=== PATIENT | male | born 2000 | race Caucasian/White ===

== ENCOUNTER → 2022-10-05 | Outpatient (CLI) | payer OTHER, SELFPAY ==
--- NOTE | 2022-10-05 11:46 | RAD_ITS ---
INDICATION: pain EXAMINATION/TECHNIQUE: X-RAY - RIGHT XR Hand Min 3 Views 3 VIEWS COMPARISON: No relevant prior comparison study available FINDINGS: SOFT TISSUES: No soft tissue swelling or gas. No radiopaque foreign body. BONES/JOINTS: No acute fracture or subluxation.. Normal alignment. Preservation of the joint space.. No sclerotic or destructive changes observed. RAD/Hand Min 3 Views IMPRESSION: No acute osseous injury. Electronically Signed: Anjana Mann MD at 12:19 EDT ,
--- NOTE | 2022-10-05 11:47 | RAD_ITS ---
INDICATION: pain EXAMINATION/TECHNIQUE: X-RAY - RIGHT XR Wrist Min 3 Views 3 VIEWS COMPARISON: No relevant prior comparison study available FINDINGS: SOFT TISSUES: No soft tissue swelling or gas. No radiopaque foreign body. BONES/JOINTS: No acute fracture or subluxation.. Normal alignment. Preservation of the joint space.. No sclerotic or destructive changes observed. RAD/Wrist min 3 Views IMPRESSION: No acute osseous injury. Electronically Signed: Anjana Mann MD at 12:17 EDT ,
== END | disposition home or self-care (01) ==
PROVIDERS: Referring Provider Physician Assistant; Visit Provider Physician Assistant
DX: M25.531 Pain in right wrist (principal)
CPT/HCPCS: 73110; 73130

== ENCOUNTER 2025-01-25 08:35 | Observation (INO) | payer SELFPAY ==
[2025-01-25] VITALS (14 sets, daily range): BP systolic 125–153; BP diastolic 49–81; PULSE 65–91; RESP 16–18; TEMP 36.6–37.1; O2SAT 96–100; BMI 26.2; BMI 25.4
--- NOTE | 2025-01-25 08:42 | EX.ED.DYSGE1 ---
HPI History of Present Illness Chief Complaint: Abd Pain [facility] Medical History (Updated 01/25/25 @ 14:05 by Abril Vogel) Anxiety Depression Smoker Preventative health care Emotional problems Right wrist sprain Right wrist pain Home Medications ?Medication ?Instructions ?Recorded ?Last Taken ?Type NK 01/25/25 Unknown History Allergy/AdvReac Type Severity Reaction Status Date / Time No Known Allergies Allergy Verified 01/25/25 14:09 Social History (Updated 12/07/23 @ 15:01 by Mirella Meredith MA) adopted: No household members: family number of children: 0 current occupational status: employed pets and animals: Yes (1`) pets and animals: dog(s) sexually active: Yes Smoking Status: Current every day smoker tobacco type: e-cigarettes Electronic Cigarette Use: with nicotine alcohol intake: never substance use type: marijuana frequency: 5-6 times per week seatbelt use: always do you feel safe at home: Yes EXAM Physical Exam Const Vital Signs: 01/25/25 08:35 01/25/25 10:04 01/25/25 12:00 Temperature 97.9 F Temperature Source Oral Pulse Rate 70 91 80 Respiratory Rate 16 16 16 Blood Pressure 149/81 H 147/67 H 153/66 H Blood Pressure Mean 103 93 95 Pulse Ox 100 100 99 Oxygen Delivery Method Room Air Room Air Room Air MDM MDM MDM Narrative Medical decision making narrative: HISTORY OF PRESENT ILLNESS: Chief complaint: Abdominal pain 24-year-old male presents abdominal pain. Notes this began last night approximate 11 PM. He further states pain is located in the right lower quadrant and right testicle. Denies any trauma. Denies history of abdominal surgery. Notes intermittent nausea but no vomiting. Denies fevers. Denies association with food. Denies recent sexual activity. Last sexual intercourse was a month to 6 weeks ago. Protected. No recent trauma. REVIEW OF SYSTEMS: Pertinent positives: Abdominal pain Pertinent negatives: Vomiting, fever PHYSICAL EXAM: Nursing triage notes reviewed, Vital signs reviewed Constitutional: please see mdm HENT: MMM Eyes: Pupils equal round and reactive to light, Extraocular muscles intact Neck: No stridor, no JVD, full neck ROM Lungs: Clear to auscultation, No wheezing or rales. No increased work of breathing, no conversational dyspnea, no accessory muscle use, no nasal flaring. No respiratory distress noted Heart: Regular rate and rhythm, No murmurs, No rubs and No gallops, 2+ distal pulses (radial, femoral, posterior tibial) in all extremities Abdomen: Soft, right lower quadrant TTP, slight rebound but no rigidity or guarding, no obvious peritoneal signs, no palpable pulsatile abdominal masses, no auscultated abdominal bruit : No CVAT. Normal testicular lie. Intact hemostatic reflex. TTP over right testicle. No palpable masses. The testicle is not high riding without exquisitely tender to pain. There is no perineal crepitus or irritation to suggest Tammie's gangrene Extremities: No edema Neuro: No new focal neurological deficits, cranial nerves II through XII intact, 5/5 strength in all present extremities. Intact sensation to light touch in all present extremities, 2+ reflexes bilateral patella tendons. Skin: No rash or lesions noted MEDICAL DECISION MAKING: Chief Complaint: please see HPI External records reviewed: Factors affecting care: none Social determinants of health: none History obtained from others: none Consults: Radiology (Dr. Gandhi) - noted acute appendicitis but no appendicolith or abscess. General surgery (Dr. Nj) - MDM Narrative: Patient was initially hemodynamically stable, afebrile and nontoxic-appearing. Exam with right lower quadrant TTP, right testicular TTP. I considered the following differential diagnosis: AAA, small bowel obstruction, abdominal perforation, appendicitis, pancreatitis, hepatobiliary pathology (acute cholecystitis), mesenteric ischemia, pathology (ie nephrolithiasis, pyelonephritis), testicular torsion, orchitis, epididymitis. I obtained broad lab and imaging work to further determine if the patient was suffering from a life-threatening etiology. Initially treat the patient with 1 L IV fluid, 15 mg IV Toradol and 4 mg IV Zofran for symptomatic relief. ALL IMAGES (IF OBTAINED) HAVE BEEN PERSONALLY REVIEWED AND INTERPRETED BY MYSELF. CBC with leukocytosis suggestive of systemic inflammation, no anemia or thrombocytopenia CMP without evidence of acute kidney injury, significant electrolyte abnormality, anion gap to suggest end organ hypo-perfusion, no evidence of metabolic acidosis with a normal bicarbonate, no evidence of hepatobiliary obstructive pathology. Lipase is wnl indicating no pancreatic inflammation. Urinalysis shows no evidence of urinary inflammation suggestive of UTI CT scan abdomen pelvis showed evidence of acute appendicitis Testicular ultrasound showed evidence of hydrocele but no sign of orchitis, epididymitis, testicular torsion or mass The patient's clinical presentation, labs images are most consistent with acute appendicitis as a likely etiology of his symptoms. I consulted general surgery immediately upon receipt of CT read. Dr. Nj evaluated the patient ED and recommended admission to general surgery observation on the [facility] floor to await urgent OR intervention The patient and/or family, caregivers express understanding. The patient and/or family, caregivers agrees with the plan. Shared decision making: I will have a discussion with the patient and or visitors regarding risk/benefits of further testing or admission. They will be made aware of of the risk/benefits inherent in this decision they will be given the opportunity to voice understanding. Total critical care time today provided was at least 35 minutes. This excludes separately billable procedures. Critical care time (if documented) is secondary to the patient having high probability of clinically significant/life threatening deterioration in the patient's condition which required my urgent intervention. Impression: 1. Acute abdominal pain 2. Right testicular pain 3. Acute appendicitis Dispo: Admit to [facility] floor This note was generated with [employer] dictation software. It may contain incorrect words, spelling, and punctuation that were not noted in review of the chart prior to signing. Lab Data Labs: Laboratory Results - last 24 hr 01/25/25 01/25/25 08:55 09:26 WBC 15.7 H RBC 4.79 Hgb 15.1 Hct 44.5 MCV 92.9 MCH 31.5 MCHC 33.9 RDW Std Deviation 43.2 RDW Coeff of Laine 12.6 Plt Count 317 MPV 9.2 Immature Gran % (Auto) 0.300 Neut % (Auto) 84.2 H Lymph % (Auto) 11.6 L [place] % (Auto) 3.5 Eos % (Auto) 0.1 Baso % (Auto) 0.3 Absolute Neuts (auto) 13.3 H Absolute Lymphs (auto) 1.82 Nucleated RBC % 0 Sodium 141 Potassium 3.9 Chloride 102 Carbon Dioxide 26.4 Anion Gap 12 BUN 13 Creatinine 0.95 Estim Creat Clear Calc 121.97 Est GFR (MDRD) Non-Af 117 BUN/Creatinine Ratio 13.4 Glucose 130 H Calcium 9.9 Total Bilirubin 0.34 AST 36 ALT 69 H Alkaline Phosphatase 76 Total Protein 7.3 Albumin 4.5 Globulin 2.8 Albumin/Globulin Ratio 1.6 Lipase 37 Urine Color Yellow Urine Clarity Cloudy Urine pH 8.0 Ur Specific [place] 1.015 Urine Protein Negative Urine Glucose (UA) Normal Urine Ketones Negative Urine Occult Blood Negative Urine Nitrite Negative Urine Bilirubin Negative Urine Urobilinogen Normal Ur Leukocyte Esterase Negative Urine RBC 0 SEEN Urine WBC 0 SEEN Ur Squamous Epith Cells 0 SEEN Amorphous Sediment 2+ PHOS Urine Bacteria 0 SEEN Urine Mucus 0 SEEN Radiography Diagnostic Testing: Clinical Impression(s) from Imaging Studies Abdomen/Pelvis CT 01/25/25 08:50 IMPRESSION: The appendix is distended measures 8 mm in diameter with wall enhancement. No appendicolith. No abscess. These findings are consistent with acute appendicitis. Reading Location: [facility] Testicular Ultrasound 01/25/25 08:50 IMPRESSION: Moderate-sized right hydrocele. Otherwise, unremarkable ultrasound of the testicles. Reading Location: [facility] Discharge Plan Disposition Disposition: Acute Care Hospital [facility] Discharge Date/Time: 01/25/25 13:41
--- NOTE | 2025-01-25 08:50 | CT_ITS ---
PROCEDURE: ABDOMEN/PELVIS W IV CONT ONLY 01/25/2025 REASON FOR EXAM: RIGHT LOWER QUADRANT ABDOMINAL PAIN TECHNIQUE: Procedure Code: [id number] Modality: CT Procedure: ABDOMEN/PELVIS W IV CONT ONLY Coronal and Sagittal reconstruction series were provided. CONTRAST: Isovue 370 VOLUME: 75 mL One or more dose reduction techniques were used (e.g., Automated exposure control, adjustment of the mA and/or kV according to patient size, use of iterative reconstruction technique. RADIATION DOSE SUMMARY: CTDlvol: 8.38 mGy DLP: 760.91 mGycm COMPARISON: None. FINDINGS: Lung bases: Clear. Liver: Unremarkable. Gallbladder: Unremarkable. No biliary dilation. Spleen: Unremarkable. Pancreas: Unremarkable. Adrenals: Unremarkable. Kidneys: No hydronephrosis. No nephrolithiasis. Bladder: Unremarkable. Reproductive Organs: Unremarkable. Bowel: No bowel wall thickening. No bowel obstruction. Appendix: The appendix is distended measures 8 mm in diameter with wall enhancement. No appendicolith. Lymph nodes: No lymphadenopathy. Vasculature: No aneurysm. Peritoneum / Retroperitoneum: Trace free fluid in the pelvis. Bones: No acute bony elements. CT/Abdomen/Pelvis W IV Cont ONLY IMPRESSION: The appendix is distended measures 8 mm in diameter with wall enhancement. No a ppendicolith. No abscess. These findings are consistent with acute appendicitis. Reading Location: [facility]
--- NOTE | 2025-01-25 08:50 | US_ITS ---
PROCEDURE: TESTICULAR WITH ARTERIAL FLOW 01/25/2025 REASON FOR EXAM: RIGHT TESTICULAR PAIN TECHNIQUE: Procedure Code: USTES Modality: US Procedure: TESTICULAR WITH ARTERIAL FLOW COMPARISON: None. FINDINGS: RIGHT testicle: 4.6 x 2.9 x 2.2 cm. Unremarkable in echotexture and vascularity. Right epididymis: 0.9 x 0.9 x 1 cm. Unremarkable in size and echogenicity. LEFT testicle: 4.7 x 2.6 x 2.1 cm. Unremarkable in echotexture and vascularity. Left epididymis: 1.1 x 1.3 x 0.8 cm. A 0.4 cm simple cyst in the left abdomen and head. Otherwise, unremarkable echogenicity and vascularity. Other findings: Moderate-sized right hydrocele. US/Testicular with Arterial Flow IMPRESSION: Moderate-sized right hydrocele. Otherwise, unremarkable ultrasound of the testicles. Reading Location: [id number]
[2025-01-25 09:05] LABS: Hematocrit 44.5 % (40-54); Hemoglobin 15.1 g/dL (13.0-16.5); Immature Granulocytes Count 0.050 X10^3/uL (0.0-0.0); Mean Corp Hgb Conc 33.9 g/dL (32-36); Mean Corpuscular Volume 92.9 fL (80-94); Mean Platelet Vol. 9.2 fl (6.2-12.0); NRBC Flagged by Analyzer 0 % (0-5); Platelet Count 317 K/mm3 (150-450); RBC Distribution Width CV 12.6 % (11.6-14.6); RBC Distribution Width SD 43.2 fl (35.1-43.9); Red Blood Count 4.79 M/mm3 (4.6-6.2); White Blood Count 15.7 K/mm3 (4.4-11.0)
[2025-01-25] MEDS: 0.9% Normal Saline (1000mL) 1,000 ML 999 ML IV (09:07)
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
[2025-01-25 09:31] LABS: Mucous, Urine 0 SEEN /hpf (<or=2+); Red Blood Cells-Urine 0 SEEN /hpf (0-5); Squamous Epithelial Cells - UA 0 SEEN /hpf (0-5)
[2025-01-25 09:32] LABS: Color, Urine Yellow (Yellow); Glucose, Dipstick Normal (Normal); Ketone-Dipstick Negative (Negative); Leukocyte Esterase-Dipstick Negative /ul (Negative); Nitrite-Dipstick Negative (Negative); Occult Blood-Urine Negative /ul (Negative); Protein-Dipstick Negative (Negative); Specific Gravity, Urine 1.015 (1.002-1.030); Urine Bilirubin Dipstick Negative (Negative)
[2025-01-25 09:42] LABS: AST(SGOT) 36 U/L (<=37); Alanine Aminotransfer ALT/SGPT 69 U/L (<=46); Albumin, Serum 4.5 g/dL (3.5-5.0); Alkaline Phosphatase 76 U/L (40-129); Anion Gap 12 (5-15); BUN 13 mg/dL (4-19); BUN/Creat Ratio 13.4 RATIO (10-20); Calcium,Total 9.9 mg/dL (7.6-11.0); Carbon Dioxide 26.4 mmol/L (21.0-32.0); Chloride 102 mmol/L (98-108); Estimated Creatinine Clearance 121.97 ml/min (50-250); Globulin 2.8 g/dL (2.2-4.2); Glucose 130 mg/dL (70-99); Lipase 37 U/L (13-75); Potassium 3.9 mmol/L (3.3-5.1)
[2025-01-25] MEDS: Piperacil/Tazobactam 4.5 GM in 0.9% Normal Saline (100mL MB+) 100 ML IV (11:29)
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
[2025-01-25] MEDS: HYDROmorphone 0.5 MG/0.5 ML SYRINGE IV ×2 (14:41→22:45)
[2025-01-25] MEDS: 0.9% Normal Saline (1000mL) 1,000 ML 125 ML IV ×2 (14:42→22:44)
--- NOTE | 2025-01-25 17:20 | APP_PTH ---
PATIENT: ANTONETTE ALVARADO SANDIE LOC: [facility] U#:[id number] AGE/SX: 24/M ROOM: [facility]319 RE01/25/[address]: Dr. Rogelio Nj MD : 2000 BED: 1 DIS: 01/26/2025 SPEC #: [id number] RECD: 01/27/25 07:39 STATUS: NAHID RELópez #: [id number] CAT: 01/25/25 17:[address]: Rogelio Nj DEPT: SURGICAL PATHOLOGY RECD BY: Rhys Ma ENTERED: 01/27/25 10:13 SP TYPE: APPENDIX OTHR DR: No Primary Care Phys Tissues: A - Appendix, NOS Procedures: Immunohistochemical Stains Surgery Specimen Level III IHC Stain ADDITIONAL HEADER OPERATION: Laparoscopic appendectomy PRE-OP DIAGNOSIS: Acute appendicitis TISSUE SUBMITTED: A- Appendix MICROSCOPIC DIAGNOSIS A. 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 - pN not assigned (no lymph nodes submitted or found). - Lymphovascular invasion identified, focal. - Surgical margin free. - Acute appendicitis. Note: The tumor cells are positive for pankeratin, Chromogranin, and Synaptophysin, supporting the diagnosis. The Ki67 proliferative index is less than 3%. Mitoses are not observed. The cross-sectional dimension of the tumor is 0.7 cm; the additional dimension cannot be determined as this is an incidental finding. CASE SUMMARY: (APPENDIX NEUROENDOCRINE TUMOR) Standard(s): AJCC-UICC 9 SPECIMEN Procedure: Appendectomy TUMOR Tumor Site: Appendix, not otherwise specified (not tip) Histologic Type and Grade# _X_G1, well-differentiated neuroendocrine tumor Histologic Grade Determination Mitotic Rate _X_ Not applicable (Ki-67 labeling index is reported) Ki-67 Labeling Index _X_ Less than 3% Tumor Size _X_ Greatest dimension in Centimeters (cm): 0.7 cm Tumor Extent _X_ Invades lamina propria _X_ Invades submucosa _X_ Invades muscularis propria _X_ Invades subserosa _X_ Perforates visceral peritoneum (serosa), focally Lymphatic and / or Vascular Invasion ___ Not identified _X_ Present +Perineural Invasion _X_ Not identified ___ Present ___ MARGINS Margin Status _X_ All margins negative for tumor +Closest Margin(s) to Tumor _X_ Cannot be determined: incidental finding +Distance from Tumor to Closest Margin Specify in Centimeters (cm) _X_ Cannot be determined: incidental finding REGIONAL LYMPH NODES Regional Lymph Node Status _X_ Not applicable (no regional lymph nodes submitted or found) DISTANT METASTASIS Distant Site(s) Involved, if applicable (select all that apply) _X_ Not applicable (unknown) pTNM CLASSIFICATION (AJCC Version 9) pT Category# ___ pT not assigned (cannot be determined based on available pathological information ___ pT0: No evidence of primary tumor ___ pT1: Tumor less than or equal to 2 cm in greatest dimension ___ pT2: Tumor greater than 2 cm but less than or equal to 4 cm in greatest dimension ___ pT3: Tumor greater than 4 cm in greatest dimension, or with subserosal invasion, or involvement of the mesoappendix _X_ pT4: Tumor perforates the peritoneum, or directly invades other adjacent organs or structures (excluding direct mural extension to adjacent subserosa of adjacent bowel), e.g., abdominal wall and skeletal muscle) pN Category _X_ pN not assigned (no nodes submitted or found) ___ pN not assigned (cannot be determined based on available pathological information) ___ pN0: No tumor involvement of regional lymph node(s) ___ pN1:Tumor involvement of regional lymph node(s) ADDITIONAL FINDINGS +Additional Findings (select all that apply) ___ None identified ___ Tumor necrosis _X_ Acute appendicitis ___ Other (specify): COMMENTS Grossly the yellow (tumor) area was observed in the mid-portion of the appendix. COMMENT Dr Johnnie Nj was notified of the preliminary diagnosis of low grade well-differentiated neuroendocrine tumor and acute appendicitis by email, 01/30/25. MICROSCOPIC DESCRIPTION Slides are reviewed. All matched controls reacted appropriately. These tests were developed and their performance characteristics determined by [facility]. They may not have been cleared or approved by the U.S. Food and Drug Administration. The FDA has determined that such clearance or approval is not necessary. The above immunohistochemical markers and/or special?stains have been reviewed by the Pathologist. GROSS DESCRIPTION A. Received in formalin labeled with the patient's name and date of . Designated as appendix is a puckett-pink appendix, adhesed on itself in a U-shapedconfiguration, measuring approximately 6.1 x 0.7 cm. The margin is inked black and shaved. Sectioning reveals pink-red, somewhat granular mucosa with hemorrhagic luminal contents; centrally, the mucosa is puckett-yellow and firm. Laboratory Machinist sections are submitted in 1 cassette. AK 01/27/2025 A. The remaining sections with yellow area are submitted in cassette A2 at [facility], following inking of the serosal surface (black) and histopathologic review. AK 01/31/25 CPT:76843,74265,32155k0
--- NOTE | 2025-01-25 19:00 | PRE.ANES_ITS ---
ASA Classification* ASA Classification ASA Classification: 2 and E Assessment & Plan Anesthesia* Anesthesia Assessment Anesthesia Assessment: Discussed sedation and/or anesthesia options, risks, benefits, and alternatives with patient/parents/legal guardian/POA. Questions invited. The patient/parents/legal guardian/POA seems to understand and agrees to proceed with anesthesia plan. Reviewed the physical assessment, medical history, allergy history and patient home medications list prior to surgery/procedure/anesthetic and documented any changes. Performed airway and anesthesia risk assessments. Anesthesia Type Anesthesia Type: General Anesthesia Focused Assessment* Temperature: 98.2 F Pulse Rate: 70 Blood Pressure: 136/78 Respiratory Rate: 17 Pulse Ox: 98 Airway Assessment Mouth opens: >3 cm Mallampati Score: II Labs Anesthesia Preop lab: CBC WBC, (4.4-11.0) 15.7 K/mm3 H Today, 08:55 RBC, (4.6-6.2) 4.79 M/mm3 Today, 08:55 Hgb, (13.0-16.5) 15.1 g/dL Today, 08:55 Hct, (40-54) 44.5 % Today, 08:55 Plt Count, (150-450) 317 K/mm3 Today, 08:55 CHEMISTRY Potassium, (3.3-5.1) 3.9 mmol/L Today, 08:55 Sodium, (133-145) 141 mmol/L Today, 08:55 BUN, (4-19) 13 mg/dL Today, 08:55 Creatinine, (0.70-1.20) 0.95 mg/dL Today, 08:55 Glucose, (70-99) 130 mg/dL H Today, 08:55 COAG Pre-Assessment Diagnosis/Proposed Procedure Planned Operative Procedure(s): lap [place] Anesthesia History 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 When Was Last Pacemaker Check QUESTION #4 FULL TEXT: You/Your Family Experience fever (hyperthermia) with Anesthesia Last Oral Intake Last Oral intake: Last Oral Intake NPO since 00:00 01/25/25 18:35 Meds taken in AM with sips of No 01/25/25 18:35 water? 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 Has anyone observed you stop No 01/25/25 13:48 breathing during sleep? STOP Results Negative 01/25/25 13:48 QUESTION #5 FULL TEXT : Do you snore loudly (louder than talking or can be heard through closed doors)? 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 Specify any problems Hx of Preganancy in last 3 N/A 01/25/25 13:48 Months Nurse Filling Out Transfusion TCLEVIDEN 01/25/25 13:48 & Questions: Date: 01/25/25 01/25/25 13:48 Time: 13:58 01/25/25 13:48 Patient unable to answer at this time (ie. 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: /Reproductive Hx- yard loader operator Hx Now Gestational Age (in weeks): EDC: Hx Hx Para Hx Section SAB Does the father of the baby or his family experience fever w Father of the baby Malignant Hypertension history comment Active Medications Active Medications: Current Medications Generic Name Dose Route Start Last Admin Trade Name Freq PRN Reason Stop Dose Admin Acetaminophen 650 mg 01/25/25 12:41 Acetaminophen 325 Mg Tablet PO Q6H PRN PRN Pain 1-10 or Fever Hydromorphone HCl 0.5 mg 01/25/25 12:41 01/25/25 14:41 Hydromorphone 0.5 Mg/0.5 Ml Syringe IV 0.5 mg Q4H PRN PRN Administration Pain Score 6-10 Sodium Chloride 1,000 mls @ 125 mls/hr 01/25/25 14:00 01/25/25 14:42 IV 125 mls/hr .Q8H LANCE Administration Piperacillin Sod/Tazobactam 50 mls @ 12.5 mls/hr 01/25/25 21:00 Sod 3.375 gm/ Sodium Chloride IV Q8 LANCE Sodium Chloride 250 mls @ 15 mls/hr 01/25/25 13:49 IV .[id number] PRN Saline Flush Sodium Chloride 250 mls @ 15 mls/hr 01/25/25 13:49 IV .[id number] PRN Additional IVPB Infusion Ondansetron HCl 4 mg 01/25/25 12:41 01/25/25 14:40 Ondansetron 4 Mg/2 Ml Vial IV 4 mg Q6H PRN PRN Administration NAUSEA/VOMITING Polyethylene Glycol 17 gm 01/26/25 10:00 Polyethylene Glycol 3350 17 Gm Packet PO DAILY LANCE Sodium Chloride 10 - 40 ml 01/25/25 13:49 0.9% Saline Lock 10 Ml Syringe IV UD PRN SALINE FLUSH PFSH Medical History Anxiety Depression Smoker Preventative health care Emotional problems Right wrist sprain Right wrist pain Home Medications ?Medication ?Instructions ?Recorded ?Last Taken ?Type NK 01/25/25 Unknown History Allergy/AdvReac Type Severity Reaction Status Date / Time No Known Allergies Allergy Verified 01/25/25 14:09 Social History adopted: No household members: family number of children: 0 current occupational status: employed pets and animals: Yes (1`) pets and animals: dog(s) sexually active: Yes Smoking Status: Current every day smoker tobacco type: e-cigarettes Electronic Cigarette Use: with nicotine alcohol intake: never substance use type: marijuana frequency: 5-6 times per week seatbelt use: always do you feel safe at home: Yes Review of Systems (Anesthesia) ROS Narrative System reviewed and no additional complaints, except as documented.
[2025-01-25] MEDS: Midazolam 2 MG/2 ML Syringe IV (19:48)
[2025-01-25] MEDS: fentaNYL 100 MCG/2 ML Ampul IV (19:48)
[2025-01-25] MEDS: Cefazolin 1 GM/5 ML Vial IV (20:10)
[2025-01-25] MEDS: Piperacil/Tazobactam 3.375 GM/50 ML ML IV (20:24)
[2025-01-25] MEDS: Bupiv/Epi 0.25% 30 ML Vial (21:00)
[2025-01-25] MEDS: Lactated Ringers 2,000 ML 2000 ML IV (21:06)
--- NOTE | 2025-01-25 21:15 | OP.PCM_ITS ---
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 Type of Anesthesia: General/Supplemental (20 mL quarter percent bupivacaine with epinephrine) RN Documented Start/Stop Times: Operation Date: 01/25/25 17:20 Case Time Into Pre-Op 01/25/25 19:11 Out of Pre-Op 01/25/25 19:45 Anesthesia Start 01/25/25 19:47 Into Room 01/25/25 19:47 Procedure Start 01/25/25 20:09 Procedure End 01/25/25 21:12 Anesthesia End 01/25/25 21:22 Out of Room 01/25/25 21:22 Into Recovery 01/25/25 21:25 Out of Recovery 01/25/25 22:01 Procedure Start Time: 20:09 Procedure Stop Time: 21:12 Select all DRAINS/GRAFTS/IMPLANTS that apply: None Estimated Blood Loss: 5 Specimen collected: Yes Description of specimen(s) removed: Appendix Description of surgery: After appropriate identification in the preoperative holding area, the patient was brought to the operating room and placed supine on the operating room table. Patient was then induced with general endotracheal anesthetic. The abdomen was prepped and draped in usual sterile fashion. Antibiotics were redosed with 1 g Ancef for skin prophylaxis and then ultimately redosed on schedule for patient's continuous Zosyn order. Formal timeout was conducted to confirm both the patient and the procedure. A supraumbilical incision was made and carried down to the level of the fascia which was sharply opened. After opening the peritoneum in like fashion a finger sweep was made to confirm position, and a balloon trocar was placed and pneumoperitoneum was established to 15 mmHg. Patient was positioned in Trendelenburg with the left side down. 2 additional 5 mm trocars were placed in the left lower quadrant and suprapubic positions. The peritoneum was inspected and there are no signs of inadvertent injury from this [place] entry. The appendix was visualized with mild inflammation as it was bent in a U-shape and adherent down to the retroperitoneum overlying the right common iliac vessel. Using a combination of blunt dissection and ultrasonic energy from the laparoscopic harmonic scalpel I freed these adhesions along the perimeter of the appendix so that it could then be elevated anteriorly. The mesoappendix was divided with serial application of a laparoscopic harmonic. Then the base of the appendix was sealed and amputated with the use of an Endo ELIZABETH stapler. The appendix was placed in an Endo Catch bag. The staple line was inspected for hemostasis and there appeared to be a slight serosal defect adjacent to the insertion of the terminal ileum. To try to minimize the risk of this becoming something clinically significant I chose to oversew the area with a single 3-0 silk suture using laparoscopic needle drivers and the epiploic fat adjacent to the terminal ileum to patch the area. This brought about a nice seal of the serosa. After hemostasis was confirmed the appendix was removed from the umbilical port site and the Endo Catch bag. Pneumoperitoneum was then evacuated and the supraumbilical port site fascia was closed with #1 Vicryl in a [id number] fashion. The port sites were infiltrated with 20 mL local anesthetic. The skin of each port site was closed with 4-0 Monocryl in a subcuticular fashion. Steri-Strips and OpSite dressings were applied. Patient tolerated procedure well without any apparent complications. They were awoken from general anesthetic without issue and transferred to post anesthesia care unit for ongoing recovery. Surgical Findings: ? Acutely inflamed, dilated appendix wrapping over the right common iliac just superior to the pelvic brim with no signs of perforation or free fluid Complications Complications: No Admit VTE Documentation VTE Mechan Device Prophylaxis: SCD's
--- NOTE | 2025-01-25 21:28 | PCM.POST.ANE ---
Anesthesia: Postop Eval I Current Vital Signs Temperature: 98.1 F Pulse Rate: 82 Blood Pressure: 149/49 Respiratory Rate: 18 Pulse Ox: 100 Assessment Airway patent: Yes Spontaneous unlabored respirations: Yes nausea: No Vomiting: No Anesthesia Complication: No Fluid Hydration Crystalloid volume administer (ml): 1,200 Total IV fluid infused: 1,200 Progress Note Anesthesia document: Postop Eval 1 completed: Yes
--- NOTE | 2025-01-25 21:29 | PCM.POSTANE2 ---
Anesthesia Postop Eval I Sum Postop Eval Completion status Anesthesia document: Postop Eval 1 completed: Yes Anesthesia Postop Eval I Summary Anesthesia Postop Eval I Summary: Anesthesia Postop Eval I: Assessment Summary Airway patent Yes 01/25/25 21:28 Spontaneous unlabored Yes 01/25/25 21:28 respirations Mental status nausea No 01/25/25 21:28 Vomiting No 01/25/25 21:28 Anesthesia Postop Eval I: Fluid Summary Crystalloid volume administer 1,200 01/25/25 21:28 (ml) Colloids volume administered ( ml) Blood Product volume administered (ml) Total IV fluid infused 1,200 01/25/25 21:28 Anesthesia Postop Eval I: Summary Notes Anesthesia Complication No 01/25/25 21:28 Anesthesia Complication Comment: Post-operative progress note Anesthesia: Postop Eval II Evaluation Mental status: Awake Pain Level: 0 nausea: No Vomiting: No
[2025-01-26 00:15] VITALS: BP 113/57; PULSE 63; RESP 16; TEMP 36.6; O2SAT 96
[2025-01-26 02:15] VITALS: BP 117/57; PULSE 49; RESP 16; TEMP 37.1; O2SAT 98
[2025-01-26] MEDS: Piperacil/Tazobactam 3.375 GM in 0.9% Normal Saline (50mL MB+) 50 ML IV (05:04)
[2025-01-26 06:15] VITALS: BP 115/60; PULSE 53; RESP 16; TEMP 36.7; O2SAT 96
[2025-01-26] MEDS: 0.9% Normal Saline (1000mL) 1,000 ML 125 ML IV (06:22)
[2025-01-26 08:23] VITALS: BP 128/40; PULSE 53; RESP 16; TEMP 36.3; O2SAT 98
[2025-01-26] MEDS: Ketorolac 30 MG/ML Syringe IV (08:37)
[2025-01-26] MEDS: Polyethylene Glycol 3350 17 GM PACKET PO (08:38)
[2025-01-26] MEDS: HYDROmorphone 0.5 MG/0.5 ML SYRINGE IV (08:38)
[2025-01-26 08:56] LABS: Anion Gap 11 (5-15); BUN 9 mg/dL (4-19); BUN/Creat Ratio 7.7 RATIO (10-20); Calcium,Total 8.6 mg/dL (7.6-11.0); Carbon Dioxide 25.4 mmol/L (21.0-32.0); Chloride 106 mmol/L (98-108); Estimated Creatinine Clearance 105.88 ml/min (50-250); Glucose 101 mg/dL (70-99); Potassium 3.8 mmol/L (3.3-5.1)
[2025-01-26 09:13] LABS: Hematocrit 41.5 % (40-54); Hemoglobin 13.6 g/dL (13.0-16.5); Immature Granulocytes Count 0.020 X10^3/uL (0.0-0.0); Mean Corp Hgb Conc 32.8 g/dL (32-36); Mean Corpuscular Volume 95.4 fL (80-94); Mean Platelet Vol. 9.3 fl (6.2-12.0); NRBC Flagged by Analyzer 0 % (0-5); Platelet Count 286 K/mm3 (150-450); RBC Distribution Width CV 12.7 % (11.6-14.6); RBC Distribution Width SD 44.8 fl (35.1-43.9); Red Blood Count 4.35 M/mm3 (4.6-6.2); White Blood Count 10.0 K/mm3 (4.4-11.0)
--- NOTE | 2025-01-26 09:30 | PN.SURG_ITS ---
Subjective Subjective Patient seen and examined during AM rounds. He is found resting in bed. However, once he arouses he states that he is quite sore. He confirms that he had some Jell-O last evening without any nausea. He shares he slept most of the evening and only began feeling his soreness this morning. Objective Data Objective Data Vital Signs: Vital Signs Temp Pulse Resp BP Pulse Ox O2 Del Method 97.4 F L 53 L 16 128/40 H 98 Room Air 01/26/25 08:23 01/26/25 08:23 01/26/25 08:23 01/26/25 08:23 01/26/25 08:23 01/26/25 08:23 Oxygen Delivery Method Room Air Weight: 177 lb 3.991 oz Body Mass Index (BMI) 25.4 Intake & Output: Intake and Output for Last 24 Hours 01/24/25 01/25/25 01/26/25 23:59 23:59 23:59 Intake Total 1868.75 / 1868.75 1434.17 / 1434.17 Balance 1868.75 / 1868.75 1434.17 / 1434.17 Lab / Micro Data 01/26/25 08:30 01/26/25 08:30 Labs: Laboratory Results - last 24 hr 01/25/25 08:55: Sodium 141, Potassium 3.9, Chloride 102, Carbon Dioxide 26.4, Anion Gap 12, BUN 13, Creatinine 0.95, Estim Creat Clear Calc 121.97, Est GFR (MDRD) Non-Af 117, BUN/Creatinine Ratio 13.4, Glucose 130 H, Calcium 9.9, Total Bilirubin 0.34, AST 36, ALT 69 H, Alkaline Phosphatase 76, Total Protein 7.3, Albumin 4.5, Globulin 2.8, Albumin/Globulin Ratio 1.6, Lipase 37 01/25/25 09:26: Urine Color Yellow, Urine Clarity Cloudy, Urine pH 8.0, Ur Specific [place] 1.015, Urine Protein Negative, Urine Glucose (UA) Normal, Urine Ketones Negative, Urine Occult Blood Negative, Urine Nitrite Negative, Urine Bilirubin Negative, Urine Urobilinogen Normal, Ur Leukocyte Esterase Negative, Urine RBC 0 SEEN, Urine WBC 0 SEEN, Ur Squamous Epith Cells 0 SEEN, Amorphous Sediment 2+ PHOS, Urine Bacteria 0 SEEN, Urine Mucus 0 SEEN 01/26/25 08:30: WBC 10.0, RBC 4.35 L, Hgb 13.6, Hct 41.5, MCV 95.4 H, MCH 31.3, MCHC 32.8, RDW Std Deviation 44.8 H, RDW Coeff of Laine 12.7, Plt Count 286, MPV 9.3, Immature Gran % (Auto) 0.200, Neut % (Auto) 63.4, Lymph % (Auto) 28.1, [place] % (Auto) 7.2, Eos % (Auto) 0.7, Baso % (Auto) 0.4, Absolute Neuts (auto) 6.3, Absolute Lymphs (auto) 2.80, Nucleated RBC % 0, Sodium 142, Potassium 3.8, Chloride 106, Carbon Dioxide 25.4, Anion Gap 11, BUN 9, Creatinine 1.13, Estim Creat Clear Calc 105.88, Est GFR (MDRD) Non-Af 94, BUN/Creatinine Ratio 7.7 L, G lucose 101 H, Calcium 8.6 Micro: Microbiology 01/25/25 09:26 Urine, Clean Catch Chlamydia/Neisseria (PCR) - Final Radiography Diagnostic Testing: Radiology Impression Abdomen/Pelvis CT 01/25/25 08:50 IMPRESSION: The appendix is distended measures 8 mm in diameter with wall enhancement. No appendicolith. No abscess. These findings are consistent with acute appendicitis. Reading Location: [facility] Testicular Ultrasound 01/25/25 08:50 IMPRESSION: Moderate-sized right hydrocele. Otherwise, unremarkable ultrasound of the testicles. Reading Location: [facility] Physical Exam Const oriented x3 Constitutional Narrative: In mild distress with pain on exam GI GI Narrative: Nondistended, operative incisions remain covered with dressings which are clean dry and intact. Patient reporting diffuse tenderness which he rates with an intensity of 9 out of 10. Assessment & Plan Assessment/Plan (1) Status post laparoscopic appendectomy: PLAN: Patient is postoperative day 1 from laparoscopic appendectomy with intraoperative finding confirming acute uncomplicated appendicitis. This morning he is reporting significant tenderness but his vitals are within normal limits, his laboratories are reassuring, and his exam somewhat equivocal. It is difficult for me to determine if this is simply patient's expression of discomfort after a did not receive significant pain medication overnight because he was sleeping and this representing his first operation or something more. I ordered a dose of Toradol and asked for ice to be applied to the incision. Will follow-up efficacy. Patient also asked to see how he does with a diet. Ultimately we will have to transition to oral pain medication before he is eligible for discharge. Rogelio Nj MD General Surgery Endocrine Surgery Pager: [facility] [address] [place] [address], [address] [place] [address] Office: [phone] Charges/Coding Visit Charges Inpatient E&M: 60113 Subs Hosp L2
--- NOTE | 2025-01-26 09:41 | DCINST_ITS ---
Discharge Instructions DC O2, CPAP, BIPAP needs Home O2 Discharge instructions: No Dressing / Incision Discharge Activity: May Not Drive (No driving while using narcotic pain medication) and May Shower (Postoperative day 1) May shower in (days): 1 Ice area for (Minutes): 20 Lifting Restrictions: No lifting greater than 15 pounds for 2 weeks after surgery Dressing / Incision Call your doctor if your incision/area has: Continuous Slow Oozing, Increased Pain/ Swelling, Increased Redness, Foul Smelling Discharge and Swelling at the incision site Call your doctor if you observe: Fever of 101 or Higher Remove Dressing in: 1 day (Please leave Steri-Strips intact until they fall off spontaneously or are taken off at your follow-up visit) Cleanse incision/area with: Soap & Water Follow Up Care Please Follow Up With: Rogelio Nj MD When: 7-10days postop Test Results: Test results from this visit will be discussed in further detail at your follow- up appointment, if applicable. Discharge Plan Admission Admit Date/Time: 01/25/25 12:41 Primary Reason for Your Visit: Acute appendicitis Attending Provider: Rogelio Nj Primary Care Provider: Care Physician,No Primary Discharge Orders/Prescriptions Prescriptions: New oxycodone 5 mg Tablet 5 mg PO Q6H PRN PRN (Reason: Pain Score 6-10) 3 Days Qty: 10 0RF Referrals / Follow Up: Yanni Gottlieb MD [Med Staff - Active Staff, Internal Medicine] Care Physician,No Primary [Primary Care Provider, Medical] Disposition Disposition (needs filled in before D/C Order can be placed): Home, Self Care
--- NOTE | 2025-01-26 09:41 | PCM.DC.SUM ---
Providers Date of Admission: 01/25/25 Primary Care Physician: No Primary Care Phys Reason For Visit: ACUTE APPENDICITIS Diagnosis Discharge Diagnosis (1) Status post laparoscopic appendectomy: Status: Acute Code(s): Z90.49 - Acquired absence of other specified parts of digestive tract Plan: Patient is postoperative day 1 from laparoscopic appendectomy with intraoperative finding confirming acute uncomplicated appendicitis. This morning he is reporting significant tenderness but his vitals are within normal limits, his laboratories are reassuring, and his exam somewhat equivocal. It is difficult for me to determine if this is simply patient's expression of discomfort after a did not receive significant pain medication overnight because he was sleeping and this representing his first operation or something more. I ordered a dose of Toradol and asked for ice to be applied to the incision. Will follow-up efficacy. Patient also asked to see how he does with a diet. Ultimately we will have to transition to oral pain medication before he is eligible for discharge. Rogelio Nj MD General Surgery Endocrine Surgery Pager: [facility] [address] [place] [address], [address] [place] [address] Office: [phone] Medications at Discharge Home Medications oxycodone 5 mg tablet 5 mg PO Q6H PRN PRN Pain Score 6-10 3 days #10 tabs 01/26/25 Hospital Course Operations appendectomy Procedures None Summary of Care Provided Hospital Course: Patient is a 24-year-old male who was admitted via the emergency department 01/25/2025 after presenting with chief complaint of acute onset abdominal pain and was diagnosed with acute appendicitis. IV antibiotics were administered immediately and patient was taken to the operating room once an opening came available for laparoscopic appendectomy. Given the late hour the operation was completed patient was returned to the floor for ongoing recovery. Morning of postoperative day 1 patient noted exceptional tenderness, however, recheck of laboratories was reassuring and vitals remained stable. Additional analgesic was prescribed and upon reevaluation patient's discomfort was much improved. He shared that it was now at a 3 out of 10. He also demonstrated tolerance of the diet and requested discharge to home. This discharge was granted after review of expectations for wound care, activity restrictions, and plan for outpatient follow-up. Physical Exam Const alert, oriented x3 and no apparent distress Resp normal respiratory effort GI GI Narrative: Operative dressings intact with scant bloody drainage on patient's left lower quadrant port site dressing otherwise clean dry and intact call has been forwarded to nondistended, soft, appropriately tender to palpation. Weight / BMI Weight Weight: 177 lb 3.991 oz Body Mass Index (BMI) 25.4 ABG / Lab / Microbiology Data 01/26/25 08:30 01/26/25 08:30 Laboratory: Laboratory Results - last 24 hr 01/26/25 08:30: WBC 10.0, RBC 4.35 L, Hgb 13.6, Hct 41.5, MCV 95.4 H, MCH 31.3, MCHC 32.8, RDW Std Deviation 44.8 H, RDW Coeff of Laine 12.7, Plt Count 286, MPV 9.3, Immature Gran % (Auto) 0.200, Neut % (Auto) 63.4, Lymph % (Auto) 28.1, [place] % (Auto) 7.2, Eos % (Auto) 0.7, Baso % (Auto) 0.4, Absolute Neuts (auto) 6.3, Absolute Lymphs (auto) 2.80, Nucleated RBC % 0, Sodium 142, Potassium 3.8, Chloride 106, Carbon Dioxide 25.4, Anion Gap 11, BUN 9, Creatinine 1.13, Estim Creat Clear Calc 105.88, Est GFR (MDRD) Non-Af 94, BUN/Creatinine Ratio 7.7 L, Glucose 101 H, Calcium 8.6 Microbiology: Microbiology 01/25/25 09:26 Urine, Clean Catch Chlamydia/Neisseria (PCR) - Final Radiography Diagnostic Testing: Radiology Impression Abdomen/Pelvis CT 01/25/25 08:50 IMPRESSION: The appendix is distended measures 8 mm in diameter with wall enhancement. No appendicolith. No abscess. These findings are consistent with acute appendicitis. Reading Location: [facility] Testicular Ultrasound 01/25/25 08:50 IMPRESSION: Moderate-sized right hydrocele. Otherwise, unremarkable ultrasound of the testicles. Reading Location: [facility] D/C Instructions May shower in (days): 1 Ice area for (Minutes): 20 Call your doctor if your incision/area has: Continuous Slow Oozing, Increased Pain/ Swelling, Increased Redness, Foul Smelling Discharge and Swelling at the incision site Call your doctor if you observe: Fever of 101 or Higher Cleanse incision/area with: Soap & Water DC O2, CPAP, BIPAP Needs Home O2 Discharge instructions: No Please Follow Up With: Rogelio Nj MD When: 7-10days postop Meaningful Use Info Meaningful Use Meaningful Use Diagnoses (Choose all that apply): None applicable Discharge Plan Admission Admit Date/Time: 01/25/25 12:41 Primary Reason for Your Visit: Acute appendicitis Attending Provider: Rogelio Nj Primary Care Provider: Care Physician,No Primary Discharge Orders/Prescriptions Prescriptions: New oxycodone 5 mg Tablet 5 mg PO Q6H PRN PRN (Reason: Pain Score 6-10) 3 Days Qty: 10 0RF Referrals / Follow Up: Yanni Gottlieb MD [Med Staff - Active Staff, Internal Medicine] Care Physician,No Primary [Primary Care Provider, Medical] Disposition Disposition (needs filled in before D/C Order can be placed): Home, Self Care Charges/Coding Visit Charges Inpatient E&M: 69361 Subs Hosp L1
[2025-01-26 10:36] VITALS: BP 126/40; PULSE 65; RESP 16; TEMP 36.5; O2SAT 99
[2025-01-26 15:07] VITALS: BP 123/41; PULSE 63; RESP 16; TEMP 36.3; O2SAT 99
== END 2025-01-26 17:00 | disposition home or self-care (01) ==
LOC: ED 12:45 → MS3 13:42
PROVIDERS: Admitting Provider Surgery; Emergency Provider Emergency Medicine; Visit Provider Surgery
PROC: 0DTJ4ZZ Resection of Appendix, Percutaneous Endoscopic Approach (ICD-10-PCS; CPT 44970; principal; 2025-01-25 17:00)
DX: K35.80 Unspecified acute appendicitis (principal); D3A.8 Other benign neuroendocrine tumors; N50.811 Right testicular pain; F17.290 Nicotine dependence, other tobacco product, uncomplicated; N43.3 Hydrocele, unspecified
CPT/HCPCS: 44970; 00840; 36415; 74177; 76870; 80048; 80053; 81001; 83690; 85025; 87491; 87591; 88304; 88341; 88342; 93976; 96365; 96366; 96375; 96376; 99221; 99284; Q9967; A4216; G0378; J2405